=== PATIENT | female | born 1960 | race Caucasian/White ===

== ENCOUNTER → 2017-11-22 | Outpatient (CLI) | payer BC ==
[2017-11-22 16:16] LABS: BASOPHILS % (AUTO) 0.9 % (0.0-2.0); EOSINOPHILS # (AUTO) 0.3 /CMM (0.0-0.7); EOSINOPHILS % (AUTO) 6.9 % (0.0-6.0); HEMATOCRIT 40 % (33-45); HEMOGLOBIN 13.7 g/dL (11.5-14.8); LYMPHOCYTES # (AUTO) 1.4 /CMM (0.8-4.8); LYMPHOCYTES % (AUTO) 31.2 % (20.0-44.0); MEAN CORPUSCULAR HEMOGLOBIN 31 PG (26.0-33.0); MEAN CORPUSCULAR HGB CONC 34 g/dl (31.0-36.0); MEAN CORPUSCULAR VOLUME 89 fL (82-100); MONOCYTES # (AUTO) 0.6 /CMM (0.1-1.30); MONOCYTES % (AUTO) 12.8 % (2.0-12.0); NEUTROPHILS % (AUTO) 48.2 % (43.0-81.0); PLATELET COUNT (AUTO) 219 /CMM (150-450); RDW COEFFICIENT OF VARIATION 12.1 (11.5-15.0); WHITE BLOOD COUNT (AUTO) 4.3 K/uL (4.3-11.0)
[2017-11-22 16:38] LABS: ALBUMIN 3.9 g/dL (3.4-5.0); BILIRUBIN,TOTAL 0.4 mg/dL (0.2-1.0); CALCIUM, SERUM 9.4 mg/dL (8.5-10.1); CREATININE 0.9 mg/dL (0.6-1.3); POTASSIUM 3.9 mmol/L (3.5-5.1); TOTAL PROTEIN, SERUM 7.6 g/dL (6.4-8.2)
[2017-11-22 16:50] LABS: ALANINE AMINOTRANSFERASE 40 U/L (12-78); ASPARTATE AMINOTRANSFERASE 43 U/L (15-37)
[2017-11-22 16:53] LABS: FREE T4 (FREE THYROXINE) 0.89 ng/dL (0.76-1.46); THYROID STIMULATING HORMONE 0.593 uIU/mL (0.358-3.74)
== END | disposition home or self-care (01) ==
LOC: LAB 15:05
PROVIDERS: ATTEND Family Medicine
DX: E78.2 Mixed hyperlipidemia (principal); M54.16 Radiculopathy, lumbar region
CPT/HCPCS: 36415; 80053-TC; 80061-TC; 82306; 82746; 84439-TC; 84443-TC; 84450-TC; 84460-TC; 85025-TC; 86592

== ENCOUNTER 2017-11-29 14:10 | Outpatient (CLI) | payer BC ==
[2017-11-29] MEDS ORDERED: GADOVERSETAMIDE 5 MMOL/10 ML VIAL IJ ONE (14:11)
== END 2017-11-30 23:59 | disposition home or self-care (01) ==
LOC: MRI 14:10
DX: I67.82 Cerebral ischemia (principal); G31.84 Mild cognitive impairment of uncertain or unknown etiology
CPT/HCPCS: 70553; A9579

== ENCOUNTER 2018-01-24 08:20 | Outpatient (CLI) | payer BC | END 2018-01-24 23:59 | disposition home or self-care (01) | LOC: WOU 08:20 | PROVIDERS: ATTEND Podiatrist Foot & Ankle Surgery | DX: T84.84XA Pain due to internal orthopedic prosthetic devices, implants and grafts, initial encounter (principal); M20.41 Other hammer toe(s) (acquired), right foot; M89.9 Disorder of bone, unspecified; M21.40 Flat foot [pes planus] (acquired), unspecified foot; R60.0 Localized edema; M24.674 Ankylosis, right foot; L84 Corns and callosities | CPT/HCPCS: A6402; G0463 ==

== ENCOUNTER 2018-01-24 09:15 | Outpatient (CLI) | payer BC | END 2018-01-24 23:59 | disposition home or self-care (01) | LOC: RAD 09:15 | PROVIDERS: ATTEND Podiatrist Foot & Ankle Surgery | DX: M19.071 Primary osteoarthritis, right ankle and foot (principal); M77.32 Calcaneal spur, left foot | CPT/HCPCS: 73630-TC; 73650-TC ==